=== PATIENT | male | born 1950 | race Caucasian/White ===

== ENCOUNTER 2018-05-04 14:10 | Emergency (ER) | payer OTHER, BC ==
[~2018-05-04] VITALS: Ht 170.2 cm; Wt 88.0 kg
[2018-05-04 14:17] VITALS: Ht 170.2 cm; Wt 88.0 kg
[2018-05-04 15:59] LABS: BASOPHIL % 1.5 % (0-2); PLATELET COUNT 301 x10^3mcL (130-400); RED CELL DISTRIBUTION WIDTH 13.3 % (11.5-14.5)
[2018-05-04 16:03] LABS: CARBON DIOXIDE 27.6 mmol/L (21-32); CHLORIDE SERUM 105 mmol/L (98-107); GFR1 > 60 mL/min; GLUCOSE SERUM 91 mg/dL (74-106); POTASSIUM SERUM 3.6 mmol/L (3.5-5.1); SODIUM SERUM 139 mmol/L (136-145)
[2018-05-04 16:07] LABS: ALBUMIN 4.2 g/dL (3.4-5.0); ALKALINE PHOSPHATASE 82 U/L (46-116); ALT/SGPT 23 U/L (16-63); AST/SGOT 16 U/L (15-37); BILIRUBIN TOTAL 0.6 mg/dL (0.20-1.00); LIPASE 251 IU/L (73-393); TOTAL PROTEIN, SERUM 8.2 g/dL (6.4-8.2)
[2018-05-04 19:03] VITALS: BP 114/71
== END 2018-05-04 19:03 | disposition home or self-care (01) ==
LOC: ED 14:10
PROVIDERS: Emergency Medicine
DX: K57.90 Diverticulosis of intestine, part unspecified, without perforation or abscess without bleeding (principal); M79.10 Myalgia, unspecified site; K21.9 Gastro-esophageal reflux disease without esophagitis; Z85.46 Personal history of malignant neoplasm of prostate
CPT/HCPCS: 87804; J1885; J7030

== ENCOUNTER 2018-06-07 20:46 | Emergency (ER) | payer OTHER, BC ==
[~2018-06-07] VITALS: Ht 172.7 cm; Wt 89.4 kg
[2018-06-07 20:51] VITALS: Ht 172.7 cm; Wt 89.4 kg
[2018-06-08] MEDS ORDERED: GOOD SENSE OMEP20 MG PO ×2 (00:07)
[2018-06-08] MEDS ORDERED: NEU300 PO (00:07)
[2018-06-08] MEDS ORDERED: LEADER MELATONIN5 MG PO (00:08)
[2018-06-08] MEDS ORDERED: EPZICOM1 TAB (00:09)
[2018-06-08] MEDS ORDERED: PURELAX PO (00:09)
[2018-06-08] MEDS ORDERED: [UNRECOGNIZED DRUG - OTHER] PO (00:09)
[2018-06-08] MEDS ORDERED: MP PO (00:10)
[2018-06-08 00:48] LABS: BASOPHIL % 0.5 % (0-2); PLATELET COUNT 279 x10^3mcL (130-400); RED CELL DISTRIBUTION WIDTH 13.1 % (11.5-14.5)
[2018-06-08 01:45] LABS: CARBON DIOXIDE 28.2 mmol/L (21-32); CHLORIDE SERUM 104 mmol/L (98-107); GLUCOSE SERUM 121 mg/dL (74-106); POTASSIUM SERUM 3.8 mmol/L (3.5-5.1); SODIUM SERUM 141 mmol/L (136-145)
[2018-06-08 01:46] LABS: CREATININE SERUM 0.9 mg/dL (0.7-1.3); GFR1 > 60 mL/min
[2018-06-08 01:50] LABS: ALBUMIN 3.8 g/dL (3.4-5.0); ALKALINE PHOSPHATASE 69 U/L (46-116); ALT/SGPT 21 U/L (16-63); AST/SGOT 12 U/L (15-37); BILIRUBIN TOTAL 0.5 mg/dL (0.20-1.00); CALCIUM 8.9 mg/dL (8.5-10.1); LIPASE 233 IU/L (73-393); TOTAL PROTEIN, SERUM 7.3 g/dL (6.4-8.2)
[2018-06-08 02:32] VITALS: BP 133/88
== END 2018-06-08 02:32 | disposition home or self-care (01) ==
LOC: ED 20:46
PROVIDERS: Emergency Medicine
DX: G47.00 Insomnia, unspecified (principal); R30.0 Dysuria; R06.02 Shortness of breath; K21.9 Gastro-esophageal reflux disease without esophagitis; Z85.46 Personal history of malignant neoplasm of prostate
CPT/HCPCS: 36415; 36600; 85378; Q0092

== ENCOUNTER 2018-07-06 07:26 | Day surgery (SDC) | payer OTHER, BC ==
[~2018-07-06] VITALS: Ht 170.2 cm; Wt 84.8 kg
[~2018-07-06 07:26] MED LIST: EPZICOM1 TAB; GOOD SENSE OMEP20 MG PO; LEADER MELATONIN5 MG PO; MP PO; NEU300 PO; PURELAX PO; [UNRECOGNIZED DRUG - OTHER] PO
[2018-07-06 08:13] VITALS: BP 136/83
[2018-07-06 12:10] VITALS: BP 121/76
== END 2018-07-06 12:15 | disposition home or self-care (01) ==
LOC: GI 07:26 → OR 09:00 → GI 10:00
PROVIDERS: Internal Medicine Gastroenterology
PROC: 0DB58ZX Excision of Esophagus, Via Natural or Artificial Opening Endoscopic, Diagnostic (ICD-10-PCS; principal; 2018-07-06 10:00)
PROC: 0DB68ZX Excision of Stomach, Via Natural or Artificial Opening Endoscopic, Diagnostic (ICD-10-PCS; 2018-07-06 10:00)
DX: R10.13 Epigastric pain (principal); Z80.42 Family history of malignant neoplasm of prostate
CPT/HCPCS: 43235; J1200; J1610; J2250; J2310; J3010; J3490